=== PATIENT | female | born 1960 | race Caucasian/White ===

== ENCOUNTER 2018-09-05 15:04 | Emergency (ER) | payer MEDICAID ==
[~2018-09-05] VITALS: Wt 59.3 kg
[2018-09-05 15:06] VITALS: BP 157/78; PULSE 71; RESP 18
--- NOTE | 2018-09-05 15:31 | ERD ---
ER Documentation Chief Complaint Chief Complaint dysuria x 5 days HPI 58-year-old female, presents the emergency department, complaining of 5 days with persistent burning urinary sensation. The patient denies fever, no chills, no abdominal pain, no vaginal discharge, no hematuria, no nausea or vomiting. ROS All systems reviewed and are negative except as per history of present illness. Medications Home Meds Active Scripts Phenazopyridine Hcl* (Pyridium*) 200 Mg Tab, 200 MG PO TID PRN for URINARY PAIN, #6 TAB Prov:CARY MICHEL MD 09/05/18 Ciprofloxacin Hcl* (Ciprofloxacin Hcl*) 250 Mg Tablet, 250 MG PO BID for 5 Days, #10 TAB Prov:CARY MICHEL MD 09/05/18 Allergies Allergies: Coded Allergies: No Known Allergy (Unverified , 09/05/18) FmHx Family History: diabetes; No coronary disease Physical Exam Vitals Vital Signs Date Temp Pulse Resp B/P (MAP) Pulse Ox O2 O2 Flow FiO2 Time Delivery Rate 09/05/18 98.8 71 18 157/78 99 15:06 (104) Physical Exam Const: No acute distress Head: Atraumatic Eyes: Normal Conjunctiva ENT: Normal External Ears, Nose and Mouth. Neck: Full range of motion. No meningismus. Resp: Clear to auscultation bilaterally Cardio: Regular rate and rhythm, no murmurs Abd: Soft, non tender, non distended. Normal bowel sounds Skin: No petechiae or rashes Back: No midline or flank tenderness Ext: No cyanosis, or edema Neur: Awake and alert Psych: Normal Mood and Affect Results 24 hrs Laboratory Tests Test 09/05/18 16:01 Bedside Urine pH (LAB) 5.5 Bedside Urine Protein (LAB) Negative Bedside Urine Glucose (UA) Negative Bedside Urine Ketones (LAB) Negative Bedside Urine Blood Negative Bedside Urine Nitrite (LAB) Negative Bedside Urine Leukocyte Esterase (L Negative Procedures/MDM Differential diagnosis include but not limited to: UTI, colitis, gastroenteritis, kidney stones, irritable bowel syndrome, inflammatory bowel syndrome, malabsorption syndrome, cholelithiasis, food intolerance, medication side effect, pancreatitis, diverticulitis, bowel obstruction. Low suspicion for acute abdomen Physical examination and clinical presentation consistent most likely with acute cystitis, no evidence of pyelonephritis or urosepsis. During the ED course the patient remained stable, no new complaints. Results and clinical impression discussed with patient who agrees with management. The patient is stable to be treated outpatient and will be discharge d home, some side effects of prescribed medications (headache, rash, nausea, vomiting, diarrhea, drowsiness, habituation, bleeding, hypertension, interactions with other medications) were reviewed. The patient was instructed to follow up with the primary care provider in the next 48h. If symptoms persist, worsen or new symptoms develop, then patient should return to the ED immediately. Instructions explained and given directly by me to the patient with acknowledgment and demonstrated understanding. Disclaimer: Inadvertent spelling and grammatical errors are likely due to EHR/dictation software use and do not reflect on the overall quality of patient care. Also, please note that the electronic time recorded on this note does not necessarily reflect the actual time of the patient encounter. Departure Diagnosis: Primary Impression: Dysuria Additional Impression: Urinary tract infection Condition: Stable Additional Instructions: Muchas kerrie por [facility] para jasso servicio. Esperamos que en jasso visita a la radha de emergencia jasso problema medico haya sido solucionado y que se sienta mucho mejor. Para estar seguros que jasso mejoria sigue en proceso, le pedimos el favor de hacer ibeth silvestre de seguimiento medico con jasso doctor primario en los proximos 2-4 walter. Lleve con usted estos documentos y las medicinas recetadas. Si alma sintomas empeoran, NO SE ESPERE, por favor regrese a radha de emergencia INMEDIATAMENTE. En marce que usted no tenga un mdico de atencin primaria: Llame al mdico o clnica comunitaria de referencia que aparece abajo merly las horas de consultorio para hacer ibeth silvestre para que le vean. CLINICAS: [facility] [phone] [facility] 173 [phone] [address] [facility] 950 [phone] [address] [facility] [phone] [address] [facility] [phone] [facility]. [phone] CARY SORIANO MD Sep 05, 2018 15:31
[2018-09-05] MEDS ORDERED: PHEN-538 PO (15:39)
[2018-09-05] MEDS ORDERED: CIPR-193 PO (15:39)
== END 2018-09-05 16:52 | disposition home or self-care (01) ==
LOC: FTE 15:04
DX: N39.0 Urinary tract infection, site not specified (principal)
CPT/HCPCS: 81003; 93005; Z7502; 99283

== ENCOUNTER 2018-10-29 13:23 | Emergency (ER) | payer MEDICAID ==
[~2018-10-29] VITALS: Ht 157.5 cm; Wt 59.2 kg
[~2018-10-29 13:23] MED LIST: CIPR-193 PO; PHEN-538 PO
[2018-10-29 13:37] VITALS: BP 157/64; PULSE 72; RESP 16; Ht 157.5 cm; Wt 59.2 kg
[2018-10-29] MEDS ORDERED: HC30CR25 TOP (13:51)
[2018-10-29] MEDS ORDERED: IBUP-1542 PO (13:51)
[2018-10-29] MEDS ORDERED: CETI10CA PO (13:51)
--- NOTE | 2018-10-29 14:40 | ERD ---
ER Documentation Chief Complaint Chief Complaint L ear pain/itching x 3 days HPI 58-year-old female presenting to the emergency department with complaints of left ear pain and itching for the past 3 days. She also reports itching of her nose and her throat and her eyes. She reports some watery discharge from her ey es. She also reports an intermittent rash to her right arm in the antecubital region. She has tried no medication for relief of symptoms. She denies any fevers, chills, abdominal pain, or other symptoms at this time. ROS All systems reviewed and are negative except as per history of present illness. Medications Home Meds Active Scripts Ibuprofen* (Motrin*) 600 Mg Tab, 600 MG PO Q6, #30 TAB Prov:ABELARDO CLEMENTS PA-C 10/29/18 Hydrocortisone* Topical (Hydrocortisone* Topical) 2.5%-28.3 Gm Cream..g., 1 APPLIC TOP BID, #1 TUB Prov:ABELARDO CLEMENTS PA-C 10/29/18 Cetirizine Hcl* (Zyrtec*) 10 Mg Capsule, 10 MG PO DAILY, #10 TAB.CHEW Prov:ABELARDO CLEMENTS PA-C 10/29/18 Phenazopyridine Hcl* (Pyridium*) 200 Mg Tab, 200 MG PO TID PRN for URINARY PAIN, #6 TAB Prov:CARY MICHEL MD 09/05/18 Ciprofloxacin Hcl* (Ciprofloxacin Hcl*) 250 Mg Tablet, 250 MG PO BID for 5 Days, #10 TAB Prov:CARY MICHEL MD 09/05/18 Allergies Allergies: Coded Allergies: No Known Allergy (Unverified , 09/05/18) PMhx/Soc Medical and Surgical Hx: pt denies Medical Hx, pt denies Surgical Hx History of Surgery: No Hx Neurological Disorder: No Hx Respiratory Disorders: No Hx Cardiac Disorders: No Hx Psychiatric Problems: No Hx Miscellaneous Medical Probl: No Hx Alcohol Use: No Hx Substance Use: No Hx Tobacco Use: No Smoking Status: Never smoker FmHx Family History: No diabetes Physical Exam Vitals Vital Signs Date Temp Pulse Resp B/P (MAP) Pulse Ox O2 O2 Flow FiO2 Time Delivery Rate 10/29/18 99.0 72 16 157/64 100 13:37 (95) Physical Exam Const: No acute distress Head: Atraumatic Eyes: Normal Conjunctiva ENT: Normal External Ears, Nose and Mouth. External auditory canals and tympanic membranes are normal in appearance bilaterally. Posterior pharynx is clear without pharyngeal erythema or exudate or tonsillar hypertrophy. Neck: Full range of motion. No meningismus. Resp: Clear to auscultation bilaterally Cardio: Regular rate and rhythm, no murmurs Skin: Urticarial type rash noted to the right antecubital fossa. Ext: No cyanosis, or edema Neur: Awake and alert Psych: Normal Mood and Affect Procedures/MDM 58-year-old female presenting to the emergency department complaining of itchy eyes, nose, ears bilaterally. Examination and history most consistent with seasonal allergies. No evidence of serious bacterial infection, sepsis, meni ngitis, or other emergencies. Patient is stable and appropriate for discharge and further outpatient management with prescriptions. She was given strict return precautions prior to discharge and she demonstrated good understanding. Patient's blood pressure was elevated (>120/80) but appears stable without evidence of hypertension emergency or urgency. The patient is to follow-up and pursue outpatient monitoring and therapy with their primary care physician within 1 week and return immediately if they have any new, worsening, or concerning symptoms. Departure Diagnosis: Primary Impression: Seasonal allergies Condition: Fair Patient Instructions: Allergic Rhinitis Referrals: [facility] ted se santillan hecho un examen mdico de control que le indica que no est en ibeth condicin que requiera tratamiento urgente en el Departamento de Emergencia. Un estudio ms profundo y el tratamiento de jasso condicin pueden esperar sin ningn riesgo hasta que usted sea atendida/o en el consultorio de jasso mdico o ibeth cl sarah. Es responsabilidad suya arreglar ibeth david para el seguimiento del marce. MANEJO DE CONDICIONES NO URGENTES EN EL FUTURO 1) Si usted tiene un mdico de atencin primaria: Usted debera llamar a jasso mdico de atencin primaria antes de venir al depar tamento de emergencia. Despus de las horas de consultorio, jasso doctor o jasso asociado/a est disponible por telfono. El mdico o enfermero de vira en el servicio telefnico puede asesorarle por benoit medio para atender el problema, o marce contrario se puede programar ibeth david. 2) Si usted no tiene un mdico de atencin primaria: Llame al mdico o clnica de referencia que aparece abajo merly las horas de consultorio para hacer ibeth david para que le vean. CLINICAS: [facility] [phone] [address] [facility] [phone] [address] [facility] [phone] [address] [facility]. [place] [phone] [facility]. [place] [address] [phone] [facility] [phone] [address] Additional Instructions: Llame al doctor MAANA y umesh ibeth DAVID PARA DENTRO DE 1-2 SMITH.Dgale a la secretaria que nosotros le instruimos hacer esta david.Avise o llame si jasso condicin se empeora antes de la david. Regresa aqui si peor o no mejor. ABELARDO CLEMENTS PA-C Oct 29, 2018 14:40
== END 2018-10-29 14:00 | disposition home or self-care (01) ==
LOC: FTE 13:23
DX: J30.2 Other seasonal allergic rhinitis (principal)
CPT/HCPCS: 99283